=== PATIENT | male | born 1960 | race Caucasian/White ===

== ENCOUNTER 2022-05-08 13:15 | Emergency (ER) | payer OTHER, SELFPAY ==
[2022-05-08 13:19] VITALS: BP 191/97; PULSE 76; RESP 16; TEMP 36.2; O2SAT 97; BMI 28.7
--- NOTE | 2022-05-08 14:07 | ED.WOUNDLAC ---
HPI - Wound/Laceration General Time Seen by Provider: 13:25 Date Seen: 05/08/22 Chief Complaint: Laceration/Wound Stated Complaint: Lac left ring finger Time Seen by Provider: 05/08/22 13:17 Source: patient and RN notes reviewed Mode of arrival: ambulatory Limitations: no limitations History of Present Illness HPI narrative: 61-year-old right-handed male who cut his left ring finger on metal at work. Initially presented to urgent care but was sent to the emergency department for further evaluation. No other injuries, tip of the fingers little numb but he says all his fingers are numb usually. Not on any blood thinners, unsure last tetanus Related Data Previous Rx's Medication Instructions Recorded cephalexin 500 mg capsule 500 mg PO TID #15 caps 05/08/22 Allergies Allergy/AdvReac Type Severity Reaction Status Date / Time No Known Drug Allergies Allergy Verified 05/08/22 13:23 Review of Systems Status of ROS: Reports: 10 or more systems reviewed and unremarkable except as noted in History and below Exam Narrative: Exam Narrative: General: well nourished , NAD Head: Atraumatic and normocephalic ENT: External ears and external nose are normal Eyes: Conjunctiva clear, pupils are equal reactive, external ocular motions are intact Neck: Full spontaneous range of motion of the neck Lungs: No respiratory distress Musculoskeletal: No tenderness or deformity. 16 mm full-thickness laceration of the middle phalanx of the left middle finger with fairly brisk venous bleeding, no high-pressure bleeding to suggest arterial injury. Distal capillary refill is less than 2 seconds. Full flexion and extension at the MCP, DIP, and PIP joints. She slightly decreased distal sensation on the radial aspect of the finger tip. Neurologic: No gross focal neurologic deficits Skin: No rashes Psych: Mood and affect are appropriate Const: Vital Signs, click to edit/add: Vital Signs - 24 hr 05/08/22 13:19 Temperature 97.2 F L Pulse Rate [Right Pulse Oximeter] 76 Respiratory Rate 16 Blood Pressure [Ri ght Upper Arm] 191/97 H Pulse Oximetry 97 Oxygen Delivery Me thod Room Air Course Course Hospital Course: Patient seen and examined, prior records reviewed. The patient with the laceration of the palmar surface of the middle phalanx. Full flexion extension at the MCP, DIP, and PIP joint, no indication of tendon injury. Still fairly brisk bleeding. Laceration repair, left middle finger middle phalanx, 16 mm full-thickness Risks and benefits of laceration repair discussed and verbal consent was obtained. Digital block with lidocaine 2% 4 mL total was done. Wound was irrigated with 1 L of normal saline, still with brisk bleeding. Finger tourniquet was placed with resolution of bleeding. Wound was explored, no foreign bodies found. Laceration closed with 5 0 Ethilon simple interrupted sutures, nine total placed. Finger tourniquet was released with no bleeding. Dressing placed. Tetanus updated. Total tourniquet time less than 10 minutes. Vital Signs Vital signs: Initial Vital Signs Temperature 97.2 F L 05/08/22 13:19 Temperature Source Temporal Artery Scan 05/08/22 13:19 Pulse Rate 76 05/08/22 13:19 Respiratory Rate 16 05/08/22 13:19 Blood Pressure 191/97 H 05/08/22 13:19 Blood Pressure Mean 128 05/08/22 13:19 Blood Pressure Position Sitting 05/08/22 13:19 Pulse Oximetry 97 05/08/22 13:19 Oxygen Delivery Method 05/08/22 13:19 Vital Signs Temperature 97.2 F L 05/08/22 13:19 Pulse Rate 76 05/08/22 13:19 Respiratory Rate 16 05/08/22 13:19 Blood Pressure 191/97 H 05/08/22 13:19 Pulse Oximetry 97 05/08/22 13:19 Oxygen Delivery Method 05/08/22 13:19 Temperature 97.2 F L 05/08/22 13:19 Pulse Rate 76 05/08/22 13:19 Respiratory Rate 16 05/08/22 13:19 Blood Pressure 191/97 H 05/08/22 13:19 Pulse Oximetry 97 05/08/22 13:19 Oxygen Delivery Method 05/08/22 13:19 Discharge Plan Discharge Clinical Impression: Finger laceration Patient Disposition: Home, Self-Care Condition: Stable Instructions: Finger Laceration (ED) Additional Instructions: Wash gently with soap and water daily. Dressing for comfort. Follow-up with clinic in 10 days for suture removal. Activity Level: No Restrictions Discharge Diet: Regular Prescriptions: New cephalexin 500 mg capsule 500 mg PO TID Qty: 15 0RF Follow Up/Referrals: Provider,Not a Local [Primary Care Provider] - Stand Alone [facility]: [facility] Info Instructions
[2022-05-08] MEDS: TETANUS/DIPHTH/PERTUSSIS 0.5 ML SYRINGE IM (14:23)
--- OUTSIDE RECORDS SUMMARY | 2022-05-08 14:24 | XMS_ITS | Clinical Summary ---
:1960 Author Organization [facility] [place] [address] Care Team Providers Name Role Phone Pcp, No Primary Care Provider Unavailable Allergies No known active allergies Medications Medication Sig Dispensed Refills Start Date End Date Status metFORMIN (GLUCOPHAGE Take 2 Tablets 90 Tablet 3 03/03/2021 Active XR) 500 mg (1,000 mg) by Extended-Release mouth once daily. tabletIndications: New onset type 2 diabetes mellitus (HC) Active Problems No known active problems Immunizations Name Administration Dates Next Due Tdap 09/29/2012 Social History Tobacco Use Types Packs/Day Years Used Date Never Smoker Smokeless Tobacco: Current User Tobacco Cessation: Ready to Quit: No; Co unseling Given: Yes Alcohol Use Standard Drinks/Week Comments Yes 0 (1 standard drink = 0.6 oz pure alcoho l) occasional Alcohol Habits Answer Date Recorded How often do you have a drink containing alcohol? Not asked How many drinks containing alcohol do you have on a typical Not asked day when you are drinking? How often do you have six or more drinks on one occasion? No t asked Comment: occasional 07/22/2017 Sex Assigned at Date Recorded Not on file Obstetrics History Last Filed Vital Signs Vital Sign Reading Time Taken Comments Blood Pressure 128/70 03/03/2021 8:17 AM CDT Pulse 64 03/03/2021 8:17 AM CDT Temperature 36.6 ??C (97.9 ??F) 02/21/2021 8:11 PM CDT Respiratory Rate 18 02/21/2021 8:11 PM CDT Oxygen Saturation 97% 02/21/2021 8:11 PM CDT Inhaled Oxygen Concentration - - Weight 102.1 kg (225 lb) 03/03/2021 8:17 AM CDT Height - - Body Mass Index - - Plan of Treatment Health Maintenance Due Date Last Done Comments COVID-19 vaccine series (#1) 02[birth year]01/1961 BMI (ht and wt on same day) for age 0208/04/1979 18+ Hepatitis C screening for age 18-79 1979 Colonoscopy through age 75 2006 Zoster (shingles) series for age 50+ 2011 (1 of 2) Depression screening for age 12+ 07/22/2018 07/22/2017 Influenza for age 50-64 02/22/2022 Tetanus booster 09/29/2022 09/29/2012 Lipids for age 45-75 03/03/2026 03/03/2021, 08/26/2006, 03/16/2005 Tdap Completed 09/29/2012 Results Not on filefrom Last 3 Months Additional Health Concerns Infection Onset Date Last 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
--- NOTE | 2022-05-08 14:40 | ED.NURSE ---
hand cleaned. bacitracin placed over sutures on L 3rd digit, covered with telfa and bulky finger dressing. finger splint to L 3rd digit
== END 2022-05-08 14:42 | disposition home or self-care (01) ==
LOC: ED 14:22
PROVIDERS: Emergency Provider Family Medicine
DX: S61.215A Laceration without foreign body of left ring finger without damage to nail, initial encounter (principal); W45.8XXA Other foreign body or object entering through skin, initial encounter; Y93.9 Activity, unspecified; Y92.9 Unspecified place or not applicable; Y99.0 Civilian activity done for income or pay
CPT/HCPCS: 12001; 90471; 90715; 99282; 99284

== ENCOUNTER 2024-05-08 10:50 | Emergency (ER) | payer OTHER, SELFPAY ==
[2024-05-08 10:56] VITALS: BP 216/112; PULSE 99; RESP 18; TEMP 36.2; O2SAT 100; BMI 30.2
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
[2024-05-08 11:52] VITALS: BP 183/98
[2024-05-08 14:21] VITALS: BP 198/99; PULSE 96; RESP 16
== END 2024-05-08 14:23 | disposition home or self-care (01) ==
PROVIDERS: Emergency Provider Family Medicine
DX: S62.515A Nondisplaced fracture of proximal phalanx of left thumb, initial encounter for closed fracture (principal); S61.012A Laceration without foreign body of left thumb without damage to nail, initial encounter; W34.00XA Accidental discharge from unspecified firearms or gun, initial encounter
CPT/HCPCS: 12001; 73130; 99284